=== PATIENT | male | born 1955 | race Caucasian/White ===

== ENCOUNTER 2021-11-05 07:36 | Emergency (ER) | payer MEDICARE, OTHER ==
[2021-11-05] MEDS ORDERED: SODIUM CHLORIDE 0.9% 1,000 ML IV STA (08:26)
--- NOTE | 2021-11-05 08:28 | ED Physician Documentation ---
PD HPI FOCAL NEURO - Stated complaint Stated Complaint: WEAKNESS/EXTREMITY NUMBNESS - Chief complaint Chief Complaint: Neuro - History obtained from History obtained from: Patient, Family - History of Present Illness Timing - onset: Yesterday Timing - duration: Days (1) Timing - details: Gradual onset, Still present Severity of deficit: Moderate Weakness: Arm, Hand, Leg, Foot, Right Associated symptoms: Headache. No: Nausea / vomiting, Seizure, Syncope, Fall, Head injury, Chest pain, Neck pain, Back pain, Fever Contributing factors: negative: Anticoagulated Baseline status: positive: A&OX3, ambulatory, indep Similar symptoms before: Has not had sx before Recently seen: Not recently seen - Additional information Additional information: 66-year-old Lamine Weiss was in his usual state of health yesterday when he developed some clumsiness to his right arm and leg and this persisted throughout the night. He had some numbness to the arm and this morning when he got to get up he collapsed because his right leg did not work. He has come to the emergency department with a right-sided deficit. He denies any prior episodes similar to this and has not recently been ill Review of Systems Constitutional: denies: Fever Eyes: denies: Loss of vision, Decreased vision Ears: denies: Ear pain Nose: denies: Rhinorrhea / runny nose, Congestion Throat: denies: Sore throat Cardiac: denies: Chest pain / pressure, Palpitations Respiratory: denies: Dyspnea, Cough GI: denies: Abdominal Pain, Nausea, Vomiting, Constipation, Diarrhea : denies: Dysuria, Frequency Skin: denies: Rash Musculoskeletal: denies: Neck pain, Back pain, Extremity pain Neurologic: reports: Focal weakness, Headache. denies: Generalized weakness, Numbness, Difficulty speaking, Confused, Altered mental status, Head injury, LOC PD PAST MEDICAL HISTORY - Present Medications Home Medications: Ambulatory Orders Medication Instructions Recorded Confirmed Aspirin [Aspirin EC] 1 tab PO DAILY 06/15/21 11/05/21 Fluticasone [Flonase] 1 spray DEDRA DAILY 06/15/21 11/05/21 Fluticasone/Salmeterol [Advair 1 puffs PO BID 06/15/21 11/05/21 500-50 Diskus] Lisinopril/Hydrochlorothiazide 1 each PO DAILY 06/15/21 11/05/21 [Zestoretic 10-12.5 mg Tablet] Rosuvastatin Calcium [Crestor] 20 mg PO QPM 06/15/21 11/05/21 - Allergies Allergies/Adverse Reactions: Allergies Allergy/AdvReac Type Severity Reaction Status Date / Time latex Allergy Rash Verified 11/05/21 07:54 PD ED PE NORMAL - Vitals Vital signs reviewed: Yes (normal ) - General General: Alert and oriented X 3, No acute distress, Well developed/nourished - HEENT HEENT: Atraumatic, PERRL, EOMI, Other (right eye is post surgical ) - Neck Neck: Supple, no meningeal sign, No bony TTP, Other (high pitched bruit present on the L) - Cardiac Cardiac: RRR, No murmur - Respiratory Respiratory: No respiratory distress, Clear bilaterally - Abdomen Abdomen: Soft, Non tender - Back Back: No CVA TTP, No spinal TTP - Derm Derm: Normal color, Warm and dry, No rash - Extremities Extremities: No deformity, No edema - Neuro Neuro: Alert and oriented X 3, leaf tier 2-12 intact, No sensory deficit, Normal speech Eye Opening: Spontaneous Motor: Obeys Commands Verbal: Oriented GCS Score: 15 - Psych Psych: Normal mood, Normal affect NIHSS - Time Time: 08:20 - Level of Consciousness Level of consciousness: (0) Alert, Keenly responsive LOC Questions: (0) Answers both Q's correct LOC Commands: (0) Performs both correctly - Gaze Best Gaze: (0) Normal - Visual Visual: (0) No loss - Facial Palsy Facial Palsy: (0) Normal, symmetrical movement - Motor Arms (both separate) Motor Arm (right): (1) Drift Motor Arm (left): (0) No drift - Motor Legs (both separate) Motor Leg (right): (1) Drift Motor Leg (left): (0) No drift - Limb Ataxia Limb Ataxia: (1) Present in 1 limb - Sensory Sensory: (0) Normal - Best Language Best Language: (0) No aphasia - Dysarthria Dysarthria: (0) Normal - Extinction and Inattention (formally neg Extinction and inattention: (0) No abnormality - Total Score/Results Total Score/Result: 3 Results - Vitals Vitals: Vital Signs - 24 hr 11/05/21 11/05/21 11/05/21 07:56 08:33 10:28 Temperature 36.3 C L Heart Rate 58 L 58 L 57 L Respiratory 18 18 15 Rate Blood Pressure 130/70 144/71 H 150/74 H O2 Saturation 98 100 100 11/05/21 10:48 Temperature Heart Rate 65 Respiratory 18 Rate Blood Pressure 139/77 H O2 Saturation 100 Oxygen O2 Source Room air - EKG (time done) 0846 Rate: Rate (enter#) (58) Rhythm: NSR Compare to prior EKG: Old EKG unavailable Computer interpretation: Agree with computer - Labs Labs: Laboratory Tests 11/05/21 11/05/21 11/05/21 08:04 08:04 08:04 WBC 9.6 RBC 4.78 Hgb 15.4 Hct 45.8 MCV 95.8 H MCH 32.2 H MCHC 33.6 RDW 13.0 Plt Count 234 MPV 8.7 Neut # (Auto) 6.5 Lymph # (Auto) 1.9 [place] # (Auto) 0.6 Eos # (Auto) 0.6 Baso # (Auto) 0.1 Absolute Nucleated RBC 0.00 Nucleated RBC % 0.0 Sodium 134 L Potassium 4.4 Chloride 100 L Carbon Dioxide 24 Anion Gap 10.0 BUN 24 H Creatinine 1.1 Estimated GFR (MDRD) 67 L Glucose 117 H Lactic Acid 1.2 Calcium 9.1 Total Bilirubin 0.6 AST 26 ALT 30 Alkaline Phosphatase 45 Total Protein 7.3 Albumin 4.0 Globulin 3.3 Albumin/Globulin Ratio 1.2 Lipase 51 Urine Color Urine Clarity Urine pH Ur Specific [place] Urine Protein Urine Glucose (UA) Urine Ketones Urine Occult Blood Urine Nitrite Urine Bilirubin Urine Urobilinogen Ur Leukocyte Esterase Ur Microscopic Review Urine Culture Comments 11/05/21 10:11 WBC RBC Hgb Hct MCV MCH MCHC RDW Plt Count MPV Neut # (Auto) Lymph # (Auto) [place] # (Auto) Eos # (Auto) Baso # (Auto) Absolute Nucleated RBC Nucleated RBC % Sodium Potassium Chloride Carbon Dioxide Anion Gap BUN Creatinine Estimated GFR (MDRD) Glucose Lactic Acid Calcium Total Bilirubin AST ALT Alkaline Phosphatase Total Protein Albumin Globulin Albumin/Globulin Ratio Lipase Urine Color YELLOW Urine Clarity CLEAR Urine pH 7.0 Ur Specific [place] 1.010 Urine Protein NEGATIVE Urine Glucose (UA) NEGATIVE Urine Ketones NEGATIVE Urine Occult Blood NEGATIVE Urine Nitrite NEGATIVE Urine Bilirubin NEGATIVE Urine Urobilinogen 0.2 (NORMAL) Ur Leukocyte Esterase NEGATIVE Ur Microscopic Review NOT INDICATED Urine Culture Comments NOT INDICATED Procedures - IVC sono (time) 0820 Bedside IVC sono: IVC measures (cm) (1.32), IVC collapsed c insp (cm) (complete), Dehydration (est <1 liter deficit) PD MEDICAL DECISION MAKING - ED course Complexity details: reviewed results, re-evaluated patient, considered differential, d/w patient, d/w family ED course: Previously well 66-year-old Lamine weiss has developed right-sided weakness and clumsiness over the past 24 hours. On examination he is found to have a carotid bruit on the left side and he is mildly dehydrated on interrogation the inferior vena cava by bedside ultrasound. He is administered a liter of saline and the angio of the head and neck is performed. There is occlusion present on the left side. Images are shared with [facility] and they are able to provide a bed for this patient as a code IR. The patient has marked improvement after administration of saline.. Departure - Departure Disposition: 02 Transfer Acute Care Hosp Clinical Impression: Dehydration Cerebrovascular accident (CVA) Qualifiers: CVA mechanism: unspecified Qualified Code(s): I63.9 - Cerebral infarction, unspecified Condition: Serious Discharge Date/Time: 11/05/21 10:59
[2021-11-05 08:31] LABS: BASOPHILS # (AUTO) 0.1 10^3/uL (0.0-0.1); BASOPHILS % (AUTO) 0.8 %; EOSINOPHILS # (AUTO) 0.6 10^3/uL (0.0-0.7); EOSINOPHILS % (AUTO) 6.4 %; HCT - HEMATOCRIT 45.8 % (42.0-52.0); HGB - HEMOGLOBIN 15.4 g/dL (14.0-18.0); LYMPHOCYTES # (AUTO) 1.9 10^3/uL (1.5-3.5); LYMPHOCYTES % (AUTO) 19.5 %; MEAN CORPUSCULAR HEMOGLOBIN 32.2 pg (27.0-31.0); MEAN CORPUSCULAR HGB CONC 33.6 g/dL (32.0-36.0); MEAN CORPUSCULAR VOLUME 95.8 fL (80.0-94.0); MEAN PLATELET VOLUME 8.7 fL (7.4-11.4); MONOCYTES # (AUTO) 0.6 10^3/uL (0.0-1.0); NEUTROPHILS # (AUTO) 6.5 10^3/uL (1.5-6.6); NEUTROPHILS % (AUTO) 67.1 %; PLT - PLATELET COUNT 234 10^3/uL (130-450); RED BLOOD COUNT 4.78 10^6/uL (4.70-6.10); WHITE BLOOD COUNT 9.6 x10^3/uL (4.8-10.8)
[2021-11-05 08:42] LABS: ALBUMIN/GLOBULIN RATIO 1.2 (1.0-2.2); BILIRUBIN,TOTAL 0.6 mg/dL (0.2-1.0); CALCIUM 9.1 mg/dL (8.5-10.3); CREATININE 1.1 mg/dL (0.6-1.2); POTASSIUM 4.4 mmol/L (3.5-5.0); TOTAL PROTEIN 7.3 g/dL (6.7-8.2)
[2021-11-05] MEDS ORDERED: IOPAMIDOL-300 50 ML VIAL IVP ONE (08:49)
--- NOTE | 2021-11-05 09:00 | CT Report ---
PROCEDURE: ANGIO HEAD W/WO INDICATIONS: right sided weakness CONTRAST: IV CONTRAST: Isovue 300 ml: 75 PO CONTRAST: *NO PO CONTRAST TECHNIQUE: Precontrast 4.5 mm thick angled axial sections acquired from the foramen magnum to the vertex. Afte r the administration of intravenous contrast, 1 mm thick sections acquired through the [place] of [place] is. Postcontrast 4.5 mm thick sections then re-acquired from the foramen magnum to the vertex. 3-di mensional oghzkth-cagrhswfq-ntbemejazp (MIP) and/or volume rendering reformats were acquired of the c entral intracranial vasculature. For radiation dose reduction, the following was used: automated ex posure control, adjustment of mA and/or kV according to patient size. COMPARISON: CT head 11/05/2021 FINDINGS: Image quality: Excellent. Anterior circulation: Normal flow noted in the right internal carotid artery. There is absence of charly w in the proximal left intracranial internal carotid artery. There is reconstitution of flow in the d istal left intracranial internal carotid artery via collateral flow and probable retrograde frontal i n the left ophthalmic artery. Atherosclerotic calcifications noted in the cavernous and clinoid segme nts of the internal carotid arteries bilaterally which causes mild narrowing of the vessels. The flow within the paired anterior cerebral arteries is normal and symmetric. The flow within the middle ce rebral arteries is normal and symmetric. The anterior communicating artery is seen. No aneurysms ar e seen. Posterior circulation: Visualized portions of the vertebral arteries demonstrate normal caliber, and join to form a normal appearing basilar artery. Flow within the posterior cerebral arteries is norm al and symmetric. No aneurysms are seen. Dural sinuses demonstrate normal postcontrast enhancement. CSF spaces: Ventricles are normal in size and shape. Basal cisterns are patent. No extra-axial flu id collections. Brain: No midline shift. No intracranial bleeds or masses. Mark-white matter interface appears int act. Skull and face: Calvarium and facial bones appear intact, without suspicious lesions. Sinuses: Mucosal thickening noted in the maxillary sinuses bilaterally and ethmoid air cells bilatera lly. The mastoids are clear. IMPRESSION: 1. Absence of contrast opacification involving the proximal intracranial segment of the left internal carotid artery compatible with occlusion. There is reconstitution of diminished flow in the distal i ntracranial segments of the left internal carotid artery via collateral flow. 2. No acute intracranial disease process. Reviewed by: Augustina Martinez MD, PhD on 11/05/2021 8:59 AM PDT Approved by: Augustina Martinez MD, PhD on 11/05/2021 8:59 AM PDT Station ID: [id number]
--- NOTE | 2021-11-05 09:04 | CT Report ---
PROCEDURE: Head W/O Stroke Protocol INDICATIONS: right sided weakness TECHNIQUE: Noncontrast 4.5 mm thick angled axial sections acquired from the foramen magnum to the vertex, with c oronal reformats. For radiation dose reduction, the following was used: automated exposure control, adjustment of mA and/or kV according to patient size. COMPARISON: FINDINGS: Image quality: Excellent. CSF spaces: Basal cisterns are patent. No extra-axial fluid collections. Ventricles are normal in size and shape. Brain: No midline shift. No intracranial masses or hemorrhage. Mark-white matter interface is norm al. Mild terminal ICA atherosclerotic calcifications. Skull and face: Calvarium and visualized facial bones are intact, without suspicious lesions. Sinuses: Maxillary sinus because of thickening. Mastoids are clear. IMPRESSION: No acute intracranial abnormality. This study fulfills neurological imaging criteria for inclusion or exclusion of acute stroke therapie s based on available published neurological imaging guidelines. Results were communicated to Dr. Blayne Weeks at 11/05/2021 8:50 AM PDT. Reviewed by: Palmer Chavez MD on 11/05/2021 9:03 AM PDT Approved by: Palmer Chavez MD on 11/05/2021 9:03 AM PDT Station ID: [id number]
--- NOTE | 2021-11-05 09:06 | CT Report ---
PROCEDURE: ANGIO NECK W INDICATIONS: R sided weakness, bruit L CONTRAST: IV CONTRAST: Isovue 300 ml: 75 PO CONTRAST: *NO PO CONTRAST TECHNIQUE: After the administration of intravenous contrast, 1.5 mm axial sections acquired from the aortic arch to the [place] of [place]. Coronal 3-D maximum intensity projection (MIP) and/or volume rendering ref ormats were then performed. For radiation dose reduction, the following was used: automated exposur e control, adjustment of mA and/or kV according to patient size. COMPARISON: None. FINDINGS: Image quality: Excellent. Carotid system: The great vessels demonstrate a conventional anatomy as they arise from the aortic a rc. The origins of the common carotid arteries appear patent. The common carotid arteries demonstr ate normal calibers and courses. Calcified and soft atherosclerotic plaque noted in the origin of the right internal carotid artery which causes high-grade, 90% stenosis to near occlusion of the vessel. Calcified and soft atherosclerotic plaque noted in the origin of the left internal carotid artery wh ich causes complete occlusion of the vessel approximately 1.9 cm distal to the origin. Posterior circulation: The origins of the vertebral arteries appear patent. Mild atherosclerotic abelardo que noted in the origins of the vertebral arteries bilaterally which causes mild narrowing of the ves sels. The more superior portions of the vertebral arteries demonstrate normal course and caliber. Th ey join to form a normal appearing basilar artery. Soft tissues: Visualized neck soft tissues demonstrate no suspicious abnormalities. The thyroid is normal in size and there are no incidental findings. Bronchiectasis and parenchymal scarring noted in the right upper lobe. Bones: No suspicious bony lesions. Spine degenerative disc disease and facet arthropathy are noted. Visualized cervical spine appears normally aligned. IMPRESSION: 1. Occlusion of the proximal left internal carotid artery. 2. High-grade, greater than 90% stenosis to near occlusion of the origin of the right internal caroti d artery. 3. Mild stenosis of the origins of the vertebral arteries. 4. Partially visualized bronchiectasis and probable scarring involving the right upper lobe. Recommen d dedicated CT scan of the chest for definitive characterization when clinically feasible. The estimate of stenosis included in the report of the imaging study was calculated using the NASCET method CLINICAL RECOMMENDATION STATEMENTS: In patients <35 years with an ITN detected on CT, MRI, or extrathyroidal ultrasound, the Committee re commends further evaluation with dedicated thyroid ultrasound if the nodule is "e1 cm and has no susp icious imaging features, and if the patient has normal life expectancy. In patients "e35 years with an ITN detected on CT, MRI, or extrathyroidal ultrasound, the Committee r ecommends further evaluation with dedicated thyroid ultrasound if the nodule is "e1.5 cm and has no s uspicious imaging features, and if the patient has normal life expectancy. (ACR, 2014) Reviewed by: Augustina Martinez MD, PhD on 11/05/2021 9:05 AM PDT Approved by: Augustina Martinez MD, PhD on 11/05/2021 9:05 AM PDT Station ID: [id number]
[2021-11-05] MEDS ORDERED: CLOPIDOGREL 300 MG TABLET PO STA (10:02)
[2021-11-05 10:18] LABS: BILIRUBIN,URINE NEGATIVE (NEGATIVE); GLUCOSE, URINE (UA) NEGATIVE (NEGATIVE); KETONES,URINE (UA) NEGATIVE (NEGATIVE); LEUKOCYTE ESTERASE, URINE NEGATIVE (NEGATIVE); NITRITE,URINE NEGATIVE (NEGATIVE); OCCULT BLOOD,URINE NEGATIVE (NEGATIVE); PROTEIN,URINE NEGATIVE (NEGATIVE); UROBILINOGEN,URINE 0.2 (NORMAL) E.U./dL (NORMAL)
[2021-11-05 10:20] LABS: CLARITY,URINE CLEAR (CLEAR)
[2021-11-05 10:49] VITALS: BP 139/77
== END 2021-11-05 10:59 | disposition short-term general hospital (02) ==
LOC: ED 07:36
DX: I63.9 Cerebral infarction, unspecified (principal); R29.703 NIHSS score 3; E86.0 Dehydration
CPT/HCPCS: 36415; 70450; 70496; 70498; 80053; 81003; 83605; 83690; 85025; 93005; 99283; 99285; A9270; Q9967; 81001; 87086

== ENCOUNTER 2021-11-14 14:52 | Emergency (ER) | payer MEDICARE, OTHER ==
--- NOTE | 2021-11-14 15:41 | ED Physician Documentation ---
History of Present Illness - Stated complaint Stated Complaint: STROKE-SYMPTOMS - Chief complaint Chief Complaint: Neuro - Additonal information Additional information: 66-year-old male presents to the emergency department for evaluation of slurred speech and right-sided facial droop. Patient reports that his symptoms began at 9 AM though the patient's tells me that she noticed the slurred speech yesterday afternoon. This gentleman initially presented to our emergency department on 05 November for Right-sided weakness. CT angio of the neck subsequently showed 90% stenosis of the right ICA and 100% stenosis of the left ICA. He was flown to [facility]. He underwent a left carotid endarterectomy on 07 November and was discharged from the hospital on Friday the . He had been recovering well until the events of yesterday afternoon. In which he fell. Meds: Lisinopril, MVI, aspirin. Not otherwise anticoagulated Review of Systems Constitutional: denies: Fever, Chills Ears: denies: Loss of hearing, Ear pain Nose: reports: Reviewed and negative Throat: denies: Dental pain / toothache, Oral lesions / sores, Sore throat, Swollen tonsils, Swallowed foreign body, Reviewed and negative, Other Cardiac: reports: Reviewed and negative Respiratory: reports: Reviewed and negative GI: reports: Reviewed and negative Musculoskeletal: denies: Neck pain, Back pain Neurologic: reports: Difficulty speaking. denies: Focal weakness, Near syncope, Syncope PD PAST MEDICAL HISTORY - Present Medications Home Medications: Ambulatory Orders Medication Instructions Recorded Confirmed Aspirin [Aspirin EC] 1 tab PO DAILY 06/15/21 11/05/21 Fluticasone [Flonase] 1 spray DEDRA DAILY 06/15/21 11/05/21 Fluticasone/Salmeterol [Advair 1 puffs PO BID 06/15/21 11/05/21 500-50 Diskus] Lisinopril/Hydrochlorothiazide 1 each PO DAILY 06/15/21 11/05/21 [Zestoretic 10-12.5 mg Tablet] Rosuvastatin Calcium [Crestor] 20 mg PO QPM 06/15/21 11/05/21 - Allergies Allergies/Adverse Reactions: Allergies Allergy/AdvReac Type Severity Reaction Status Date / Time latex Allergy Rash Verified 11/14/21 14:59 PD ED PE EXPANDED - General General: Alert, No acute distress - HEENT HEENT: PERRL, EOMI - Cardiac Cardiac: Regular Rate, Radial strong equal, Pedal strong equal, Cap refill < 2 sec - Respiratory Respiratory: Clear to ausultation berta. No: Distress, Labored - Abdomen Abdomen: Normal Bowel sounds. No: Tender to palpation - Derm Derm: Normal color, Warm and dry. No: Rash - Neuro Neuro: Other (Right-sided facial droop, deviation of the tongue). No: CNII-XII intact, Normal speech (Slurred speech) - GCS Eye Opening: Spontaneous Motor: Obeys Commands Verbal: Oriented Total: 15 Results - Vitals Vitals: Vital Signs - 24 hr 11/14/21 11/14/21 11/14/21 14:59 15:35 16:05 Temperature 36.4 C L Heart Rate 68 77 77 Respiratory 18 13 19 Rate Blood Pressure 134/59 H 128/71 148/80 H O2 Saturation 96 98 98 Oxygen O2 Source Room air - Labs Labs: Laboratory Tests 11/14/21 11/14/21 11/14/21 15:36 15:36 15:36 WBC 9.3 RBC 4.80 Hgb 15.3 Hct 45.7 MCV 95.2 H MCH 31.9 H MCHC 33.5 RDW 13.0 Plt Count 278 MPV 8.6 Neut # (Auto) 5.4 Lymph # (Auto) 2.0 [place] # (Auto) 0.9 Eos # (Auto) 0.9 H Baso # (Auto) 0.1 Absolute Nucleated RBC 0.00 Nucleated RBC % 0.0 PT 11.6 INR 1.0 Sodium 131 L Potassium 4.3 Chloride 98 L Carbon Dioxide 26 Anion Gap 7.0 BUN 23 H Creatinine 1.0 Estimated GFR (MDRD) 75 L Glucose 122 H Calcium 9.0 Total Bilirubin 0.6 AST 36 ALT 59 Alkaline Phosphatase 52 Troponin I High Sens Total Protein 6.9 Albumin 3.8 Globulin 3.1 Albumin/Globulin Ratio 1.2 Lipase 30 11/14/21 15:36 WBC RBC Hgb Hct MCV MCH MCHC RDW Plt Count MPV Neut # (Auto) Lymph # (Auto) [place] # (Auto) Eos # (Auto) Baso # (Auto) Absolute Nucleated RBC Nucleated RBC % PT INR Sodium Potassium Chloride Carbon Dioxide Anion Gap BUN Creatinine Estimated GFR (MDRD) Glucose Calcium Total Bilirubin AST ALT Alkaline Phosphatase Troponin I High Sens 13.7 Total Protein Albumin Globulin Albumin/Globulin Ratio Lipase - Rads (name of study) CT head Radiology: Final report received (Findings suggestive of acute subarachnoid hemorrhage involving the left frontal lobe. No definite intraparenchymal hemorrhage. No midline shift or mass-effect) PD MEDICAL DECISION MAKING - ED course Complexity details: reviewed results, re-evaluated patient, considered differential, d/w patient, d/w [employer] application consultant (Elsie (Neurosurgery)) ED course: 66-year-old male presents to the emergency department for evaluation of right- sided facial droop slurred speech. Symptoms began yesterday in the p.m.. He was recently diagnosed with 100% left ICA occlusion on 05 November and flown to [facility]. While there he underwent a left carotid enterectomy. He was discharged on the . Since yesterday p.m. his notes that he has had some slurred speech and right-sided facial droop. This morning he did have a fall though did not strike his head or lose consciousness. On presentation today he has an NIHSS of 4 for mild facial droop and aphasia though this seems to be resolving on reevaluation. Unfortunately the CT scan does show a left subarachnoid hemorrhage. This appears to be in the area of previous infarct so this may be a hemorrhagic conversion. He is not anticoagulated and is taking aspirin only. 1600: I have spoken with neurosurgeon Dr. Zimmerman on-call at [facility]. He agrees that the patient requires transfer. Given the paucity of beds he will be transferred directly to the emergency department. I have spoken with Oscar the transfer RN in the emergency department and made aware that the patient will be arriving via [facility]. He is otherwise hemodynamically stable. Patient's is aware of the plan and findings at the bedside. 1625: I have spoken with Dr. Curiel Neuro supervisor front at [facility]. He also accepts the patient in transfer. The patient will be going directly to the emergency department and I have spoken with Nelda the RN there and notified. They are attempting to make a neuro ICU bed available. Departure - Departure Disposition: 02 Transfer Acute Care Hosp Clinical Impression: Subarachnoid hemorrhage, History of carotid endarterectomy Condition: Serious NIHSS - Time Time: 16:00 - Level of Consciousness Level of consciousness: (1) Not alert, but arousable by minor stimulation to obey, or answer LOC Questions: (0) Answers both Q's correct LOC Commands: (0) Performs both correctly - Gaze Best Gaze: (0) Normal - Visual Visual: (0) No loss - Facial Palsy Facial Palsy: (2) Partial paralysis - Motor Arms (both separate) Motor Arm (right): (0) No drift Motor Arm (left): (0) No drift - Motor Legs (both separate) Motor Leg (right): (0) No drift Motor Leg (left): (0) No drift - Limb Ataxia Limb Ataxia: (0) Absent - Sensory Sensory: (0) Normal - Best Language Best Language: (1) [id number] - Dysarthria Dysarthria: (0) Normal - Extinction and Inattention (formally neg Extinction and inattention: (0) No abnormality - Total Score/Results Total Score/Result: 4
--- NOTE | 2021-11-14 15:48 | CT Report ---
PROCEDURE: Head W/O Stroke Protocol INDICATIONS: right sided weakness 9am TECHNIQUE: Noncontrast 4.5 mm thick angled axial sections acquired from the foramen magnum to the vertex, with c oronal reformats. For radiation dose reduction, the following was used: automated exposure control, adjustment of mA and/or kV according to patient size. COMPARISON: FINDINGS: Image quality: Excellent. CSF spaces: Basal cisterns are patent. There is interval development of hyperdensity along left post erior frontal lobe sulci concerning for acute subarachnoid hemorrhage. Linear hyperdensity is also se en involving medial left frontal lobe sulci adjacent to midline series 3 image 14 and series 5 image 16 concerning for additional area of acute subarachnoid hemorrhage. No other extra-axial fluid collec tion. Ventricles are normal in size and shape. Brain: No midline shift. Small lacunar infarct is seen in left basal ganglia unchanged from prior st udy. No acute intraparenchymal hemorrhage. No intracranial mass. Mark-white matter interface is julia l. Skull and face: Calvarium and visualized facial bones are intact, without suspicious lesions. Sinuses: Visualized sinuses and mastoids are clear. IMPRESSION: 1. Finding is suggestive of acute subarachnoid hemorrhage involving left frontal lobe as above. 2. No definite intraparenchymal hemorrhage. No midline shift or mass effect. Findings were reported to referring clinician in the ER at 3:47 PM on 11/14/2021. This study fulfills neurological imaging criteria for inclusion or exclusion of acute stroke therapie s based on available published neurological imaging guidelines. Reviewed by: Mamadou Guerrier MD on 11/14/2021 3:47 PM PDT Approved by: Mamadou Guerrier MD on 11/14/2021 3:47 PM PDT Station ID: [id number]
[2021-11-14 15:52] LABS: BASOPHILS # (AUTO) 0.1 10^3/uL (0.0-0.1); BASOPHILS % (AUTO) 1.2 %; EOSINOPHILS # (AUTO) 0.9 10^3/uL (0.0-0.7); EOSINOPHILS % (AUTO) 9.3 %; HCT - HEMATOCRIT 45.7 % (42.0-52.0); HGB - HEMOGLOBIN 15.3 g/dL (14.0-18.0); LYMPHOCYTES % (AUTO) 21.6 %; MEAN CORPUSCULAR HEMOGLOBIN 31.9 pg (27.0-31.0); MEAN CORPUSCULAR HGB CONC 33.5 g/dL (32.0-36.0); MEAN CORPUSCULAR VOLUME 95.2 fL (80.0-94.0); MEAN PLATELET VOLUME 8.6 fL (7.4-11.4); MONOCYTES # (AUTO) 0.9 10^3/uL (0.0-1.0); MONOCYTES % (AUTO) 9.8 %; NEUTROPHILS # (AUTO) 5.4 10^3/uL (1.5-6.6); NEUTROPHILS % (AUTO) 57.6 %; PLT - PLATELET COUNT 278 10^3/uL (130-450); WHITE BLOOD COUNT 9.3 x10^3/uL (4.8-10.8)
[2021-11-14 15:59] LABS: PT - PROTHROMBIN TIME 11.6 secs (9.9-12.6)
--- NOTE | 2021-11-14 16:04 | XRAY Report ---
PROCEDURE: Chest 1 View X-Ray INDICATIONS: Chest Pain TECHNIQUE: One view of the chest was acquired. COMPARISON: None. FINDINGS: Surgical changes and devices: None. Lungs and pleura: No pleural effusions or pneumothorax. Lungs are clear. Mediastinum: Mediastinal contours appear normal. Heart size is normal. Bones and chest wall: No suspicious bony lesions. Overlying soft tissues appear unremarkable. IMPRESSION: No acute cardiopulmonary pathology. Reviewed by: Mamadou Guerrier MD on 11/14/2021 4:02 PM PDT Approved by: Mamadou Guerrier MD on 11/14/2021 4:02 PM PDT Station ID: [id number]
[2021-11-14 16:09] LABS: ALBUMIN 3.8 g/dL (3.2-5.5); ALBUMIN/GLOBULIN RATIO 1.2 (1.0-2.2); BILIRUBIN,TOTAL 0.6 mg/dL (0.2-1.0); POTASSIUM 4.3 mmol/L (3.5-5.0); TOTAL PROTEIN 6.9 g/dL (6.7-8.2)
[2021-11-14 16:11] VITALS: BP 148/80
== END 2021-11-14 16:36 | disposition short-term general hospital (02) ==
LOC: ED 14:52
DX: I60.9 Nontraumatic subarachnoid hemorrhage, unspecified (principal); R29.810 Facial weakness; R47.81 Slurred speech; R29.704 NIHSS score 4; Z20.822 Contact with and (suspected) exposure to COVID-19
CPT/HCPCS: 36415; 80053; 83690; 84484; 85025; 85610; 93005; 99284; 99285

== ENCOUNTER 2021-12-12 13:02 | Outpatient (CLI) | payer MEDICARE, OTHER ==
--- NOTE | 2021-12-12 13:59 | XRAY Report ---
PROCEDURE: Chest 2 View X-Ray INDICATIONS: ASPERGILLOSIS TECHNIQUE: 2 view(s) of the chest. COMPARISON: None. FINDINGS: Surgical changes and devices: None. Lungs and pleura: No pleural effusions or pneumothorax. Lungs are clear. Elevation of the left hem idiaphragm is unchanged. Scarring in the left midlung is unchanged. Mediastinum: Mediastinal contours are normal. Heart size is normal. Bones and chest wall: No suspicious bony abnormalities. Soft tissues appear unremarkable. IMPRESSION: No acute cardiopulmonary abnormality. Reviewed by: Sunny Trinidad on 12/12/2021 1:58 PM PDT Approved by: Sunny Trinidad on 12/12/2021 1:58 PM PDT Station ID: [id number]
== END 2021-12-12 13:03 | disposition home or self-care (01) ==
LOC: DI 13:02
PROVIDERS: ATTEND Internal Medicine
DX: B44.81 Allergic bronchopulmonary aspergillosis (principal)

== ENCOUNTER 2021-12-21 09:14 | Outpatient (CLI) | payer MEDICARE, OTHER ==
[2021-12-21] MEDS ORDERED: ALBUTEROL 1 PUFF INH STA (13:21)
== END 2021-12-21 09:15 | disposition home or self-care (01) ==
LOC: RT 09:14
PROVIDERS: ATTEND Internal Medicine
DX: B44.81 Allergic bronchopulmonary aspergillosis (principal)
CPT/HCPCS: 94060; 94727; 94729

== ENCOUNTER 2022-02-03 15:02 | Emergency (ER) | payer MEDICARE, OTHER ==
[2022-02-03] MEDS ORDERED: lisinopriL 5 MG TABLET PO STA (15:42)
[2022-02-03] MEDS ORDERED: cloNIDine 0.1 MG TABLET PO STA (15:42)
--- NOTE | 2022-02-03 15:43 | ED Physician Documentation ---
History of Present Illness - Stated complaint Stated Complaint: HIGH BP/HEADACHE - Chief complaint Chief Complaint: Neuro - History obtained from History obtained from: Patient, Family - Additonal information Additional information: 66-year-old gentleman had a carotid endarterectomy on the right 3 days ago at [facility]. He was advised to seek medical attention if his systolic blood pressure was over 160. They have seen high readings today with systolics above 180. He feels fine, has a very mild headache but really no other complaints except for ongoing hoarseness of his throat for which he is referred already to ENT. He is accompanied by his . Review of Systems Constitutional: denies: Fever, Chills Throat: denies: Dental pain / toothache, Sore throat Cardiac: denies: Chest pain / pressure, Palpitations Respiratory: denies: Dyspnea, Cough PD PAST MEDICAL HISTORY - Present Medications Home Medications: Ambulatory Orders Medication Instructions Recorded Confirmed Aspirin [Aspirin EC] 1 tab PO DAILY 06/15/21 11/05/21 Fluticasone [Flonase] 1 spray DEDRA DAILY 06/15/21 11/05/21 Fluticasone/Salmeterol [Advair 1 puffs PO BID 06/15/21 11/05/21 500-50 Diskus] Lisinopril/Hydrochlorothiazide 1 each PO DAILY 06/15/21 11/05/21 [Zestoretic 10-12.5 mg Tablet] Rosuvastatin Calcium [Crestor] 20 mg PO QPM 06/15/21 11/05/21 - Allergies Allergies/Adverse Reactions: Allergies Allergy/AdvReac Type Severity Reaction Status Date / Time latex Allergy Rash Verified 02/03/22 15:16 - Social History Does the pt smoke?: No Smoking Status: Never smoker PD ED PE NORMAL - Vitals Vital signs reviewed: Yes - General General: Alert and oriented X 3, No acute distress - HEENT HEENT: PERRL, EOMI, Other (Healing surgical incision over the right carotid with no signs of dehiscence or infection.) - Neck Neck: Supple, no meningeal sign, No bony TTP - Cardiac Cardiac: RRR, No murmur - Respiratory Respiratory: No respiratory distress, Clear bilaterally - Abdomen Abdomen: Normal bowel sounds, Soft, Non tender - Back Back: No CVA TTP, No spinal TTP - Derm Derm: Normal color, Warm and dry - Extremities Extremities: No edema, No calf tenderness / cord - Neuro Neuro: Alert and oriented X 3, Normal speech Results - Vitals Vitals: Vital Signs - 24 hr 02/03/22 02/03/22 02/03/22 15:11 15:15 15:51 Temperature 36.5 C Heart Rate 80 73 77 Respiratory 16 15 Rate Blood Pressure 152/77 H 154/64 H 134/82 H O2 Saturation 97 98 Oxygen O2 Source Room air - Labs Labs: Laboratory Tests 02/03/22 02/03/22 15:48 15:48 WBC 9.3 RBC 4.57 L Hgb 14.8 Hct 44.3 MCV 96.9 H MCH 32.4 H MCHC 33.4 RDW 12.5 Plt Count 241 MPV 8.6 Neut # (Auto) Not Reportable Lymph # (Auto) Not Reportable [place] # (Auto) Not Reportable Eos # (Auto) Not Reportable Baso # (Auto) Not Reportable Absolute Nucleated RBC Not Reportable Total Counted 100 Band Neuts % (Manual) 0 Reactive Lymphs % (Man) 4 Abnorm Lymph % (Manual) 0 Nucleated RBC % Not Reportable Neutrophils # (Manual) 5.2 Lymphocytes # (Manual) 2.5 Monocytes # (Manual) 0.7 Eosinophils # (Manual) 0.8 H Basophils # (Manual) 0.0 Differential Comment MANUAL DIFFERENTIAL Platelet Estimate NORMAL (130-450,000) Platelet Morphology NORMAL APPEARANCE RBC Morph Micro Appear NORMAL APPEARANCE Sodium 134 L Potassium 4.0 Chloride 102 Carbon Dioxide 24 Anion Gap 8.0 BUN 18 Creatinine 0.8 Estimated GFR (MDRD) 97 Glucose 134 H Calcium 9.0 PD MEDICAL DECISION MAKING - ED course ED course: This is a 66-year-old gentleman who is a few days out from a carotid endarterectomy who presents with higher than goal blood pressures but no clinical evidence of endorgan damage. 66-year-old gentleman presents with asymptomatic elevated blood pressure in the setting of being postop a few days after carotid endarterectomy. He was administered 0.1 mg of clonidine and extra dose of lisinopril and on recheck his blood pressure had normalized. Departure - Departure Disposition: 01 Home, Self Care Clinical Impression: History of carotid endarterectomy, Elevated blood pressure reading Condition: Good Record reviewed to determine appropriate education?: Yes Instructions: ED HTN Established Comments: You can double your lisinopril to 20 mg a day for now. Return for new or worsening symptoms. If his blood pressure stays on the low side, you can go back to the 10 mg a day of lisinopril.
[2022-02-03 15:52] VITALS: BP 134/82
[2022-02-03 15:52] LABS: BASOPHILS % (AUTO) 1.3 %; EOSINOPHILS % (AUTO) 13.8 %; HCT - HEMATOCRIT 44.3 % (42.0-52.0); HGB - HEMOGLOBIN 14.8 g/dL (14.0-18.0); LYMPHOCYTES % (AUTO) 21.5 %; MEAN CORPUSCULAR HEMOGLOBIN 32.4 pg (27.0-31.0); MEAN CORPUSCULAR HGB CONC 33.4 g/dL (32.0-36.0); MEAN CORPUSCULAR VOLUME 96.9 fL (80.0-94.0); MEAN PLATELET VOLUME 8.6 fL (7.4-11.4); MONOCYTES % (AUTO) 6.9 %; NEUTROPHILS % (AUTO) 56.2 %; PLT - PLATELET COUNT 241 10^3/uL (130-450); RED BLOOD COUNT 4.57 10^6/uL (4.70-6.10); RED CELL DISTRIBUTION WIDTH 12.5 % (12.0-15.0); WHITE BLOOD COUNT 9.3 x10^3/uL (4.8-10.8)
[2022-02-03 15:54] LABS: ABNORMAL LYMPHS % (MANUAL) 0 %; BAND NEUTROPHILS % (MANUAL) 0 %
[2022-02-03 16:01] LABS: CREATININE 0.8 mg/dL (0.6-1.2)
[2022-02-03 16:16] LABS: EOSINOPHILS # (MANUAL) 0.8 10^3/uL (0-0.7); LYMPHOCYTES # (MANUAL) 2.5 10^3/uL (1.5-3.5); LYMPHOCYTES % (MANUAL) 23 %; MONOCYTES # (MANUAL) 0.7 10^3/uL (0.0-1.0); NEUTROPHILS # (MANUAL) 5.2 10^3/uL (1.5-6.6); RBC MORPHOLOGY (MULTIPLE) NORMAL APPEARANCE (NORMAL); REACTIVE LYMPHS % (MANUAL) 4 %
[2022-02-03 16:17] LABS: DIFFERENTIAL COMMENT MANUAL DIFFERENTIAL; PLATELET ESTIMATE, MANUAL NORMAL (130-450,000) (NORMAL); PLATELET MORPHOLOGY NORMAL APPEARANCE (NORMAL)
== END 2022-02-03 16:30 | disposition home or self-care (01) ==
LOC: ED 15:02
DX: I10 Essential (primary) hypertension (principal); Z98.62 Peripheral vascular angioplasty status
CPT/HCPCS: 36415; 80048; 85025; 99283; 99284; A9270

== ENCOUNTER 2023-11-13 19:35 | Emergency (ER) | payer MEDICARE, OTHER ==
[2023-11-13 20:11] LABS: BASOPHILS # (AUTO) 0.1 10^3/uL (0.0-0.1); BASOPHILS % (AUTO) 1.1 %; EOSINOPHILS # (AUTO) 1.9 10^3/uL (0.0-0.7); EOSINOPHILS % (AUTO) 14.5 %; HCT - HEMATOCRIT 43.8 % (42.0-52.0); HGB - HEMOGLOBIN 14.4 g/dL (14.0-18.0); LYMPHOCYTES # (AUTO) 1.7 10^3/uL (1.5-3.5); LYMPHOCYTES % (AUTO) 13.2 %; MEAN CORPUSCULAR HEMOGLOBIN 32.7 pg (27.0-31.0); MEAN CORPUSCULAR HGB CONC 32.9 g/dL (32.0-36.0); MEAN CORPUSCULAR VOLUME 99.3 fL (80.0-94.0); MEAN PLATELET VOLUME 8.6 fL (7.4-11.4); MONOCYTES # (AUTO) 0.8 10^3/uL (0.0-1.0); MONOCYTES % (AUTO) 5.7 %; NEUTROPHILS # (AUTO) 8.6 10^3/uL (1.5-6.6); NEUTROPHILS % (AUTO) 65.2 %; PLT - PLATELET COUNT 303 10^3/uL (130-450); RED BLOOD COUNT 4.41 10^6/uL (4.70-6.10); RED CELL DISTRIBUTION WIDTH 12.1 % (12.0-15.0); WHITE BLOOD COUNT 13.1 x10^3/uL (4.8-10.8)
[2023-11-13 20:13] LABS: SLIDE REVIEW? Indicated
[2023-11-13 20:20] LABS: D-DIMER 489.6 ng/mL (200.0-255.0)
[2023-11-13 20:29] LABS: ALBUMIN 4.1 g/dL (3.2-5.5); ALBUMIN/GLOBULIN RATIO 1.4 (1.0-2.2); BILIRUBIN,TOTAL 0.4 mg/dL (0.2-1.0); CALCIUM 9.6 mg/dL (8.5-10.3); CREATININE 1.1 mg/dL (0.6-1.3); POTASSIUM 4.4 mmol/L (3.5-4.5); TOTAL PROTEIN 7.1 g/dL (6.4-8.9)
[2023-11-13 20:47] LABS: RBC MORPHOLOGY (MULTIPLE) NORMAL APPEARANCE (NORMAL)
[2023-11-13 20:48] LABS: DIFFERENTIAL COMMENT MANUAL=AUTO DIFF; PLATELET ESTIMATE, MANUAL NORMAL (130-450,000) (NORMAL); PLATELET MORPHOLOGY NORMAL APPEARANCE (NORMAL)
[2023-11-13] MEDS ORDERED: iohexoL-300 100 ML VIAL ONE (21:12)
[2023-11-13 21:13] LABS: INR 1.1 (0.8-1.2); PT - PROTHROMBIN TIME 12.3 secs (9.9-12.6)
[2023-11-13] MEDS: iohexoL-300 100 ML VIAL IVP ONE (21:47)
[2023-11-13 22:01] LABS: BILIRUBIN,URINE NEGATIVE (NEGATIVE); GLUCOSE, URINE (UA) NEGATIVE (NEGATIVE); KETONES,URINE (UA) NEGATIVE (NEGATIVE); LEUKOCYTE ESTERASE, URINE SMALL (NEGATIVE); NITRITE,URINE NEGATIVE (NEGATIVE); OCCULT BLOOD,URINE NEGATIVE (NEGATIVE); PROTEIN,URINE NEGATIVE (NEGATIVE); UROBILINOGEN,URINE 0.2 (NORMAL) E.U./dL (NORMAL)
[2023-11-13 22:02] LABS: CLARITY,URINE CLEAR (CLEAR)
--- NOTE | 2023-11-13 22:03 | XRAY Report ---
PROCEDURE: Chest 2V INDICATIONS: hemoptysis TECHNIQUE: 2 views of the chest were acquired. COMPARISON: 12/12/2021 FINDINGS: Surgical changes and devices: None. Lungs and pleura: Patchy consolidations of the bilateral lung bases and right upper lung zone. Diffu se interstitial prominence. Possible small bilateral pleural effusions although bilateral costophreni c angles have been excluded. Mediastinum: Mediastinal contours appear normal. Heart size is normal. Bones and chest wall: No suspicious bony lesions. Overlying soft tissues appear unremarkable. IMPRESSION: Patchy bibasilar consolidation and patchy opacity of the right upper lung zone suspicious for multifo lona pneumonia. Suspected small bilateral pleural effusions. Reviewed by: Jesse Hartley MD on 11/13/2023 10:02 PM PDT Approved by: Jesse Hartley MD on 11/13/2023 10:02 PM PDT Station ID: [id number]
[2023-11-13 22:12] LABS: BACTERIA,URINE None Seen /HPF (None Seen); RBC,URINE None Seen /HPF (0-5); SQUAMOUS EPITHELIAL CELL,UR NONE SEEN (<= Few); WBC,URINE >25 /HPF (0-3)
--- NOTE | 2023-11-13 22:50 | CT Report ---
PROCEDURE: Angio Chest INDICATIONS: R/O PE CONTRAST: Omni 300, 80mls TECHNIQUE: After the administration of intravenous contrast, 2 mm axial images were acquired from the pulmonary apices to the posterior costophrenic angles during the arterial phase. In addition, 1 mm lung kernel and 5 mm soft tissue kernel reconstructions were performed. 3-dimensional coronal oblique maximum int ensity projection (MIP) reformats, 8 mm axial MIP, and 5 mm coronal and sagittal MPR reformats were t hen performed through the thorax. For radiation dose reduction, the following was used: automated exp osure control, adjustment of mA and/or kV according to patient size. COMPARISON: Chest radiograph from same day FINDINGS: Image quality: Diagnostic. Moderate respiratory motion artifact. Large vessels: No filling defects within the opacified pulmonary arteries, accounting for motion and contrast timing. No evidence of acute aortic syndrome or aortic aneurysm. Lungs and pleura: Dependent atelectasis bilaterally. Bronchiectasis of the right upper lobe. Associat ed right upper lobe scarring. Irregular dense consolidation involving the anterior right lower lobe w ith associated air bronchograms and traversing bronchiectasis. Minimal peripheral groundglass opaciti es. More peripheral nodular consolidations. No septal nodularity. No pleural effusions. No pneumotho rax. Left lung is clear without focal consolidations. Mediastinum: Heart size is normal. No pericardial effusion. No large vessel abnormality. Prominent ri ght hilar and mediastinal lymph nodes likely reactive in etiology. No hilar adenopathy. Chest wall and lower neck: Thyroid is unremarkable. No axillary or supraclavicular adenopathy by size . Bones: No aggressive osseous abnormality. No acute compression fracture. Multilevel spondylosis. Upper Abdomen: Hepatic steatosis. Layering gallstones without CT evidence for acute cholecystitis. IMPRESSION: No acute pulmonary emboli identified. Irregular anterior right lower lobe consolidation with adjacent small peripheral nodular densities an d groundglass opacities likely related to infectious etiology and presumably pneumonia. Prominent rig ht hilar and mediastinal lymph nodes favored to represent reactive lymph nodes. Recommend short inter shi follow-up chest CT to document resolution. This can be accomplished approximately 3 months after appropriate treatment. Hepatic steatosis. Cholelithiasis. Reviewed by: Jesse Hartley MD on 11/13/2023 10:49 PM PDT Approved by: Jesse Hartley MD on 11/13/2023 10:49 PM PDT Station ID: [id number]
--- NOTE | 2023-11-13 23:03 | ED Physician Documentation ---
History of Present Illness - Stated complaint Stated Complaint: COUGHING UP BLOOD - Chief complaint Chief Complaint: Resp - Additonal information Additional information: 68-year-old male presents emergency department He has a history of allergic bronchopulmonary aspergillosis which is a rare lung disease that occurs when the immune system is over reactive to fungus of Aspergillus fumigatus in the lungs. Patient says that he has history of coughing up blood in the past but this was due to a cyst in his lung that he had washed out in 1991. He denies any other current symptoms he says overall he is feeling well no nausea vomiting diarrhea no fevers or chills said this was a random sudden onset unsure if he has had any recent exposure to mold. PD PAST MEDICAL HISTORY - Past Medical History Past Medical History: Yes Cardiovascular: Hypertension Respiratory: Asthma, Other Neuro: CVA GI: None : None HEENT: None Psych: None Musculoskeletal: None Derm: None - Past Surgical History Past Surgical History: Yes - Present Medications Home Medications: Ambulatory Orders Medication Instructions Recorded Confirmed Aspirin [Aspirin EC] 1 tab PO DAILY 06/15/21 11/13/23 Fluticasone Propion/Salmeterol 1 puffs PO BID 06/15/21 11/13/23 [Advair 500-50 Diskus] Fluticasone [Flonase] 1 spray DEDRA DAILY 06/15/21 11/13/23 Rosuvastatin Calcium [Crestor] 20 mg PO QPM 06/15/21 11/13/23 Amox/Clav 875/125 [Augmentin 1 tablet PO Q12H 7 Days #14 tablet 11/13/23 875/125 Tab] Azelastine HCl 137 mcg NS DAILY 11/13/23 11/13/23 Azithromycin [Zithromax Tri-Sunil] 500 mg PO QDAC 5 Days #6 tablet 11/13/23 Gabapentin [Neurontin] 100 mg PO HS 11/13/23 11/13/23 Lisinopril [Zestril] 40 mg PO DAILY 11/13/23 11/13/23 Trazodone HCl 50 - 100 mg PO HS 11/13/23 11/13/23 amLODIPine [Norvasc] 5 mg PO DAILY 11/13/23 11/13/23 - Allergies Allergies/Adverse Reactions: Allergies Allergy/AdvReac Type Severity Reaction Status Date / Time latex Allergy Rash Verified 11/13/23 19:37 - Social History Does the pt smoke?: No Smoking Status: Former smoker Does the pt drink ETOH?: No Does the pt have substance abuse?: Yes Substance Use and Type: Marijuana - Immunizations Immunizations are current?: Yes - POLST Patient has POLST: No PD ED PE NORMAL - Vitals Vital signs reviewed: Yes - General General: Alert and oriented X 3, No acute distress, Well developed/nourished - HEENT HEENT: Atraumatic, PERRL, Moist mucous membranes, Pharynx benign - Neck Neck: Supple, no meningeal sign - Cardiac Cardiac: RRR, No gallop - Respiratory Respiratory: No respiratory distress, Clear bilaterally - Back Back: No CVA TTP - Derm Derm: Normal color, Warm and dry, No rash - Extremities Extremities: No edema, No calf tenderness / cord Results - Vitals Vitals: Vital Signs - 24 hr 11/13/23 11/13/23 19:37 23:28 Temperature 37.2 C 37.2 C Heart Rate 84 66 Respiratory 18 18 Rate Blood Pressure 164/61 H 132/66 H O2 Saturation 95 97 Oxygen O2 Source Room air - Labs Labs: Microbiology 11/13/23 21:48 Urine Culture - Preliminary Urine,Random Laboratory Tests 11/13/23 11/13/23 11/13/23 20:03 20:03 20:03 WBC 13.1 H RBC 4.41 L Hgb 14.4 Hct 43.8 MCV 99.3 H MCH 32.7 H MCHC 32.9 RDW 12.1 Plt Count 303 MPV 8.6 Neut # (Auto) 8.6 H Lymph # (Auto) 1.7 [place] # (Auto) 0.8 Eos # (Auto) 1.9 H Baso # (Auto) 0.1 Absolute Nucleated RBC 0.00 Band Neuts % (Manual) Not Reportable Abnorm Lymph % (Manual) Not Reportable Nucleated RBC % 0.0 Neutrophils # (Manual) Not Reportable Lymphocytes # (Manual) Not Reportable Monocytes # (Manual) Not Reportable Eosinophils # (Manual) Not Reportable Basophils # (Manual) Not Reportable Differential Comment MANUAL=AUTO DIFF Manual Slide Review Indicated Platelet Estimate NORMAL (130-450,000) Platelet Morphology NORMAL APPEARANCE RBC Morph Micro Appear NORMAL APPEARANCE PT 12.3 INR 1.1 D-Dimer 489.6 H Sodium 136 Potassium 4.4 Chloride 104 Carbon Dioxide 25 Anion Gap 7.0 BUN 22 H Creatinine 1.1 Estimated GFR (MDRD) 67 L Glucose 146 H Calcium 9.6 Total Bilirubin 0.4 AST 20 ALT 19 Alkaline Phosphatase 71 Total Protein 7.1 Albumin 4.1 Globulin 3.0 Albumin/Globulin Ratio 1.4 Lipase 34 Urine Color Urine Clarity Urine pH Ur Specific [place] Urine Protein Urine Glucose (UA) Urine Ketones Urine Occult Blood Urine Nitrite Urine Bilirubin Urine Urobilinogen Ur Leukocyte Esterase Urine RBC Urine WBC Ur Squamous Epith Cells Urine Bacteria Ur Microscopic Review Urine Culture Comments Blood Type Blood Type Recheck Antibody Screen 11/13/23 11/13/23 11/13/23 20:03 20:16 21:48 WBC RBC Hgb Hct MCV MCH MCHC RDW Plt Count MPV Neut # (Auto) Lymph # (Auto) [place] # (Auto) Eos # (Auto) Baso # (Auto) Absolute Nucleated RBC Band Neuts % (Manual) Abnorm Lymph % (Manual) Nucleated RBC % Neutrophils # (Manual) Lymphocytes # (Manual) Monocytes # (Manual) Eosinophils # (Manual) Basophils # (Manual) Differential Comment Manual Slide Review Platelet Estimate Platelet Morphology RBC Morph Micro Appear PT INR D-Dimer Sodium Potassium Chloride Carbon Dioxide Anion Gap BUN Creatinine Estimated GFR (MDRD) Glucose Calcium Total Bilirubin AST ALT Alkaline Phosphatase Total Protein Albumin Globulin Albumin/Globulin Ratio Lipase Urine Color YELLOW Urine Clarity CLEAR Urine pH 6.0 Ur Specific [place] 1.025 Urine Protein NEGATIVE Urine Glucose (UA) NEGATIVE Urine Ketones NEGATIVE Urine Occult Blood NEGATIVE Urine Nitrite NEGATIVE Urine Bilirubin NEGATIVE Urine Urobilinogen 0.2 (NORMAL) Ur Leukocyte Esterase SMALL H Urine RBC None Seen Urine WBC >25 H Ur Squamous Epith Cells NONE SEEN Urine Bacteria None Seen Ur Microscopic Review INDICATED Urine Culture Comments INDICATED Blood Type O POSITIVE Blood Type Recheck O POSITIVE Antibody Screen NEGATIVE - Rads (name of study) Chest x-ray Relevant Findings:: Final report received, EMP independent interpretation of test, Other (Patchy bibasilar consolidation and patchy opacity of the right upper lung suspicious for multifocal pneumonia with small bilateral pleural effusions) CT chest angio Relevant Findings:: Final report received, EMP independent interpretation of test, Other (No acute pulmonary emboli, irregular anterior right lower lobe consolidation with small peripheral nodular densities and groundglass opacities, hepatic steatosis, cholelithiasis) PD Medical Decision Making - ED course ED course: 68-year-old male presents emergency department for concerns of coughing up blood. Labs are complete for further evaluation D-dimer was found to be quite elevated at 489.[address] angio was ordered which was found to be negative for pulmonary embolism Other labs do show some mild leukocytosis 13.1 no significant anemia, neutrophils elevated at 8.6 eosinophils also elevated at 1.9. No electrolyte abnormalities BUN is elevated at 22, GFR 67 glucose is 146 urinalysis is unremarkable patient is not on any blood thinners. Chest x-ray does show some patchy bibasilar consolidation and patchy opacity of the right upper lung zone suspicious for multifocal pneumonia the CT angio although negative for pulmonary embolism it does reveal irregular anterior right lower lobe consolidation with adjacent small peripheral nodular densities and groundglass opacities. Given patient's diagnoses of ABPA this is what is probably causing the pneumonia. Patient was given antibiotics here in the emergency department he was started on Augmentin and azithromycin and prescription of Augmentin and azithromycin was to his preferred pharmacy. He was given strict return precautions curb 65 score was 1 he is safe for discharge all questions answered and patient was told to follow-up with his primary care provider soon as possible. Departure - Departure Disposition: 01 Home, Self Care Clinical Impression: Pneumonia Condition: Stable Instructions: Pneumonia Dc Prescriptions: Amox/Clav 875/125 [Augmentin 875/125 Tab] 1 tablet PO Q12H 7 Days #14 tablet Azithromycin [Zithromax Tri-Sunil] 500 mg PO QDAC 5 Days #6 tablet Comments: You were seen in the emergency department for pneumonia. Antibiotics sent to your pharmacy. Please follow-up with your primary care provider and return to the emergency department if you have any new or worsening symptoms or other concerns. Forms: PCP List Discharge Date/Time: 11/13/23 23:28
[2023-11-13] MEDS: AZITHROMYCIN 250 MG TABLET PO STA (23:21)
[2023-11-13] MEDS: AMOX/CLAV 875 MG/125 MG TABLET PO STA (23:21)
[2023-11-13 23:34] VITALS: BP 132/66; O2SAT 97
== END 2023-11-13 23:28 | disposition home or self-care (01) ==
LOC: ED 19:35
DX: J18.9 Pneumonia, unspecified organism (principal); B44.81 Allergic bronchopulmonary aspergillosis; I10 Essential (primary) hypertension; R79.89 Other specified abnormal findings of blood chemistry; D72.829 Elevated white blood cell count, unspecified; Z87.891 Personal history of nicotine dependence
CPT/HCPCS: 36415; 71046; 71275; 80053; 81001; 83690; 85025; 85379; 85610; 86850; 86900; 86901; 87086; 99284; A9270; Q9967; 81003

== ENCOUNTER 2023-11-19 11:48 | Outpatient (CLI) | payer MEDICARE, OTHER ==
--- NOTE | 2023-11-19 16:39 | XRAY Report ---
PROCEDURE: Chest 2V INDICATIONS: PNA TECHNIQUE: 2 views of the chest were acquired. COMPARISON: Chest x-ray, 11/13/2023 and 11/12/2021. FINDINGS: Surgical changes and devices: Chest x-ray, 11/13/2023. Lungs and pleura: Multifocal infiltrates laterally, most pronounced in right lower lobe, consistent with pneumonia. Compared to last exam, there is no significant change. No pleural effusions or pneumo thorax. Mediastinum: Mediastinal contours appear normal. Heart size is normal. Bones and chest wall: No suspicious bony lesions. Overlying soft tissues appear unremarkable. IMPRESSION: Persistent multifocal pneumonia bilaterally. Reviewed by: Rafael Lin MD on 11/19/2023 4:37 PM PDT Approved by: Rafael Lin MD on 11/19/2023 4:37 PM PDT Station ID: [id number]
== END 2023-11-19 11:49 | disposition home or self-care (01) ==
LOC: DI 11:48
PROVIDERS: ATTEND Internal Medicine
DX: J18.9 Pneumonia, unspecified organism (principal)

== ENCOUNTER 2023-12-08 10:49 | Outpatient (CLI) | payer MEDICARE, OTHER ==
--- NOTE | 2023-12-08 15:58 | CT Report ---
PROCEDURE: Chest WO INDICATIONS: PNA TECHNIQUE: A CT scan of the chest was performed. Intravenous contrast media was not administered. Images were re corded and evaluated at appropriate window settings. Reformats: axial MIP of the chest, coronal and s agittal. For radiation dose reduction, the following was used: automated exposure control, adjustment of mA and/or kV according to patient size. COMPARISON: CT chest angiogram 11/13/2023. FINDINGS: Image quality: Diagnostic. Chest wall and lower neck: No thyroid nodule which requires sonographic follow up. No axillary or sup raclavicular adenopathy by size. Lungs and pleura: There is decreased consolidation in the anterior right lower lobe since 11/13/2023. Some residual solid nodule/nodular consolidation remain, for example subfissural node measuring 0.8 x 0.9 cm (61. There is persistent bronchiectasis involving the right upper lobe and to a lesser exte nt anterior right lower lobe. No pleural effusions. No pneumothorax. Mediastinum: Heart size is normal. No pericardial effusion. Moderate to severe coronary artery calcif ications. No large vessel abnormality. Decreased right hilar mediastinal lymphadenopathy, for example right paratracheal node measures 1.2 cm in short axis (), previously 1.7 cm in short axis. Small hiatal hernia. Bones: No aggressive osseous abnormality. Upper Abdomen: Cholelithiasis without acute inflammation. IMPRESSION: Compared to prior CT 11/13/2023, interval decrease in right lower lobe consolidation with mild persist ent areas of surrounding nodules/nodular consolidation. Decreased thoracic lymphadenopathy. Finding is most consistent with resolving infectious/inflammatory process. Consider follow-up CT chest in 12 months to demonstrate stability of residual solid nodules versus nodular consolidation. Right upper lobe and anterior right lower lobe bronchiectasis. Cholelithiasis without CT evidence of acute cholecystitis. Moderate to severe coronary artery calcifications. Reviewed by: Radha Spann MD, PhD on 12/08/2023 3:57 PM PDT Approved by: Radha Spann MD, PhD on 12/08/2023 3:57 PM PDT Station ID: [id number]
== END 2023-12-08 10:50 | disposition home or self-care (01) ==
LOC: DI 10:49
PROVIDERS: ATTEND Internal Medicine
DX: J18.9 Pneumonia, unspecified organism (principal); J47.9 Bronchiectasis, uncomplicated; K80.20 Calculus of gallbladder without cholecystitis without obstruction; I25.10 Atherosclerotic heart disease of native coronary artery without angina pectoris

== ENCOUNTER 2023-12-25 10:28 | Outpatient (CLI) | payer MEDICARE, OTHER ==
--- NOTE | 2023-12-25 21:25 | XRAY Report ---
PROCEDURE: Lumbar Spine 2-3V INDICATIONS: BACK STRAIN TECHNIQUE: 2 views of the lumbar spine were acquired. COMPARISON: None. FINDINGS: Surgical change: None. Bones: 5 [id number] vertebrae are present. Marked levoscoliosis. Prominent vertebral body osteo phytes. No vertebral body compression fractures. No suspicious bony lesions. Soft tissues: Overlying bowel gas pattern is normal. No suspicious soft tissue calcifications. Rebecca rial vascular calcifications. IMPRESSION: Marked scoliosis. Extensive degenerative changes. Reviewed by: Palmer Chavez MD on 12/25/2023 9:23 PM PDT Approved by: Palmer Chavez MD on 12/25/2023 9:23 PM PDT Station ID: [id number]
== END 2023-12-25 10:29 | disposition home or self-care (01) ==
LOC: DI 10:28
PROVIDERS: ATTEND Family Medicine
DX: S39.012A Strain of muscle, fascia and tendon of lower back, initial encounter (principal); M41.9 Scoliosis, unspecified; M47.816 Spondylosis without myelopathy or radiculopathy, lumbar region; M25.78 Osteophyte, vertebrae